=== PATIENT | female | born 1955 | race Caucasian/White ===

== ENCOUNTER → 2023-12-24 | Outpatient (CLI) | payer OTHER ==
[~2023-12-24] MED LIST: ABAT250V; ALBU2.5V5; ASPI81CH; BUDE6HFA; BUPR150ER; CITA20 PO; CYCL10 PO; DICL25ER PO; DICLOFENAC SOD100 G1; FURO40 PO; K-Dur20 MEQ; METF500 PO; MONT10T PO; OMEPRAZOLE20 MG PO; Percocet 5-3251 EACH; Pravachol40 MG; TRAM50; ZYRTEC10 M1
[2023-12-25 15:45] LABS: Creatinine Urine 71.9 mg/dL (27.00-270.00); Microalbumin, Urine Quant. 47.5 mg/L (0.000-20.000); Protein, Urine Quantitative 19.4 mg/dL (0.0-11.9)
== END ==
LOC: LAB 07:30 → LAB SHORT 07:30 → LAB FUT 12-19 12:00
PROVIDERS: Internal Medicine Nephrology
DX: N18.30 Chronic kidney disease, stage 3 unspecified (principal); D63.1 Anemia in chronic kidney disease; N25.81 Secondary hyperparathyroidism of renal origin; E55.9 Vitamin D deficiency, unspecified; E78.00 Pure hypercholesterolemia, unspecified; R76.9 Abnormal immunological finding in serum, unspecified; R94.5 Abnormal results of liver function studies; R94.6 Abnormal results of thyroid function studies
CPT/HCPCS: 81050; 82043; 82570; 84156